=== PATIENT | male | born 1985 | race Caucasian/White ===

== ENCOUNTER → 2018-03-25 | Emergency (ER) | payer SELFPAY ==
[~2018-03-25] VITALS: Ht 175.3 cm; Wt 81.8 kg
[~2018-03-25] MED LIST: FLEXERIL 1010 MG/TAB PO; ZOVIRAX800 MG PO
[2018-03-25 11:45] VITALS: BP 136/84; TEMP 98.5
[2018-03-25 12:48] VITALS: PULSE 98
== END ==
LOC: COL.ER 11:39
DX: R21 Rash and other nonspecific skin eruption (principal); F41.9 Anxiety disorder, unspecified; F90.9 Attention-deficit hyperactivity disorder, unspecified type; F43.10 Post-traumatic stress disorder, unspecified; F17.210 Nicotine dependence, cigarettes, uncomplicated; Z90.81 Acquired absence of spleen